=== PATIENT | male | born 1950 | race Caucasian/White ===

== ENCOUNTER 2016-12-16 11:39 | Emergency (ER) | payer MEDICARE, OTHER ==
[~2016-12-16] VITALS: Ht 167.6 cm; Wt 73.0 kg
[~2016-12-16 11:39] MED LIST: ALBU8I INH; ASPI1TAB7 PO; DUONI NEB; METF500 PO; PRED20 PO; SIMV20 PO; SYMB160A INH
[2016-12-16 11:45] VITALS: BP 159/55; PULSE 92; RESP 24; TEMP 98.3; O2SAT 95
[2016-12-16 11:55] VITALS: BP 139/78; PULSE 92; RESP 18; TEMP 98.2; O2SAT 95
[2016-12-16] MEDS ORDERED: SODIUM CHLORIDE 0.9% FLUSH 10 ML FLUSH IVF PRN (12:00)
[2016-12-16] MEDS ORDERED: RESP: ALBUTEROL 2.5 MG/IPRATROPIUM 0.5 MG NEB (SCH) NEB ONE (12:00)
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
[2016-12-16] MEDS ORDERED: VENTAER INH (12:03)
[2016-12-16] MEDS ORDERED: IPRASOL INH (12:03)
[2016-12-16] MEDS ORDERED: ASPI81CH CHEW (12:03)
[2016-12-16] MEDS ORDERED: TIOT12.9 INH (12:03)
[2016-12-16] MEDS ORDERED: METF500T PO (12:03)
[2016-12-16] MEDS ORDERED: SYMB160A INH (12:03)
[2016-12-16] MEDS ORDERED: SIMV20TA PO (12:04)
[2016-12-16 12:09] VITALS: O2SAT 95
[2016-12-16 12:21] VITALS: O2SAT 95
[2016-12-16 12:21] LABS: BLOOD GAS VENOUS BASE EXCESS 3.6 mmol/L (-2-2); BLOOD GAS VENOUS HCO3 28 mmol/L (22-26); BLOOD GAS VENOUS O2 CONTENT 15.5 Vol % (9.0-17.0); BLOOD GAS VENOUS O2 HGB SAT 80 % (70-76); BLOOD GAS VENOUS PCO2 47 mmHg (44-48); BLOOD GAS VENOUS PO2 47 mmHg (35-40); CRITICAL VALUE NO; LITER FLOW 2 L/M; OXYGEN DEVICE NASAL CANNULA; TEMP CORR TO 98.6
[2016-12-16 12:22] LABS: DRAW SITE R PERIPHERAL; STAT YES
[2016-12-16 12:31] LABS: AUTOMATED NEUTROPHIL # 6.1 TH/MM3 (1.8-7.7); BASOPHIL # 0.1 TH/MM3 (0-0.2); BASOPHIL % 0.6 % (0.0-2.0); EOSINOPHIL # 0.3 TH/MM3 (0-0.4); EOSINOPHIL % 2.8 % (0.0-4.0); HEMATOCRIT 41.6 % (39.0-51.0); HEMO FLAGS DIFF FINAL; LYMPH % 26.6 % (9.0-44.0); LYMPHOCYTE # 2.6 TH/MM3 (1.0-4.8); MEAN CELL VOLUME 91.8 FL (80.0-100.0); MEAN CORPUSCULAR HEMOGLOBIN 30.1 PG (27.0-34.0); MEAN CORPUSCULAR HGB CONC 32.8 % (32.0-36.0); MONO % 8.5 % (0.0-8.0); NEUT % 61.5 % (16.0-70.0); PLATELET COUNT 296 TH/MM3 (150-450); RED BLOOD COUNT 4.53 MIL/MM3 (4.50-5.90); RED CELL DISTRIBUTION WIDTH 14.5 % (11.6-17.2); WHITE BLOOD COUNT 9.9 TH/MM3 (4.0-11.0)
[2016-12-16 12:33] LABS: CHLORIDE 106 MEQ/L (98-107); POTASSIUM 3.9 MEQ/L (3.5-5.1); SODIUM (NA) 139 MEQ/L (136-145)
[2016-12-16 12:37] LABS: ANION GAP 7 MEQ/L (5-15); APTT (PATIENT) 25.4 SEC (24.3-30.1); BICARBONATE 26.5 MEQ/L (21.0-32.0); BLOOD UREA NITROGEN 8 MG/DL (7-18); INTERNATIONAL NORMALIZED RATIO 0.9 RATIO; MAGNESIUM 1.9 MG/DL (1.5-2.5); PROTHROMBIN TIME - PATIENT 10.1 SEC (9.8-11.6)
[2016-12-16 12:40] LABS: ALT (GPT) 15 U/L (12-78); AST (GOT) 14 U/L (15-37); GLOMERULAR FILTRATION RATE 118 ML/MIN (>89)
[2016-12-16 12:42] LABS: TOTAL BILIRUBIN ADULT 0.4 MG/DL (0.2-1.0)
[2016-12-16 12:43] LABS: ALKALINE PHOSPHATASE 64 U/L (45-117)
[2016-12-16] MEDS ORDERED: BENZONATATE 100 MG CAP PO ONE (12:45)
[2016-12-16 12:55] VITALS: BP 142/71; PULSE 79; RESP 20; O2SAT 95
--- NOTE | 2016-12-16 12:57 | RADRPT ---
EXAM DATE/TIME: 12/16/2016 12:22 [facility] COMPARISON: No previous studies available for comparison. INDICATIONS : Cough & short of breath. MEDICAL HISTORY : Chronic obstructive pulmonary disease. Hypercholesterolemia. Diabetic. SURGICAL HISTORY : Tonsillectomy. ENCOUNTER: Initial ACUITY: 2 weeks PAIN SCORE: 0/10 LOCATION: chest FINDINGS: PA and lateral views of the chest demonstrate the lungs to be symmetrically hyper aerated without kandace dence of mass, infiltrate or effusion. The cardiomediastinal contours are unremarkable. Osseous str uctures are intact. CONCLUSION: 1. COPD 2. No evidence of acute process. Anival Maurer MD on December 16, 2016 at 12:55 Board Certified Radiologist. This report was verified electronically.
[2016-12-16] MEDS ORDERED: predniSONE 20 MG TAB PO ONE (13:00)
[2016-12-16] MEDS ORDERED: AZITHROMYCIN 250 MG TAB PO ONE (13:15)
[2016-12-17] MEDS ORDERED: predniSONE 20 MG TAB PO SCH (09:00)
[2016-12-17] MEDS ORDERED: AZITHROMYCIN 250 MG TAB PO SCH (09:00)
--- NOTE | 2016-12-17 13:52 | EKG ---
Date Performed: 12/16/2016 Time Performed: 11:58:57 PTAGE: 66 years EKG: Sinus rhythm RIGHT BUNDLE BRANCH BLOCK ABNORMAL ECG Compared to prior tracing no significant change PREVIOUS TRACING : 01/12/2016 13.40 DOCTOR: Rina Burton Interpretating Date/Time 12/17/2016 13:51:06
== END 2016-12-16 13:39 | disposition home or self-care (01) ==
LOC: PHED 11:39
DX: J44.1 Chronic obstructive pulmonary disease with (acute) exacerbation (principal); R94.31 Abnormal electrocardiogram [ECG] [EKG]; E11.9 Type 2 diabetes mellitus without complications; E78.00 Pure hypercholesterolemia, unspecified; F17.200 Nicotine dependence, unspecified, uncomplicated; Z79.82 Long term (current) use of aspirin; Z79.84 Long term (current) use of oral hypoglycemic drugs; Z87.09 Personal history of other diseases of the respiratory system
CPT/HCPCS: 71020; 80053; 82805; 83735; 83880; 84484; 85025; 85610; 85730; 93005; 94664; 99285; J7512

== ENCOUNTER 2017-06-17 09:30 | Emergency (ER) | payer MEDICAID, MEDICARE, OTHER ==
[~2017-06-17] VITALS: Ht 170.2 cm; Wt 75.0 kg
[~2017-06-17 09:30] MED LIST changes: -ALBU8I INH; +ASPI-516 CHEW; -ASPI1TAB7 PO; -DUONI NEB; +IPRASOL INH; -METF500 PO; +METF500T PO; -PRED20 PO; -SIMV20 PO; +SIMV20TA PO; +TIOT12.9 INH; +VENTAER INH
[2017-06-17 09:35] VITALS: BP 171/112; PULSE 78; RESP 20; TEMP 97.9; O2SAT 93
[2017-06-17] MEDS ORDERED: ONDANSETRON HCL 4 MG/2 ML VIAL IM ONE (10:15)
[2017-06-17] MEDS ORDERED: MORPHINE SULFATE 4 MG/ML INJ IM ONE (10:15)
--- NOTE | 2017-06-17 10:16 | PD ---
HPI Chief Complaint: Respiratory Symptoms Time Seen by Provider: 09:57 Travel History International Travel<30 days: No Contact w/Intl Traveler<30days: No Traveled to known affect area: No History of Present Illness HPI This patient complains of pain in his back. He's had it for one month. Sometimes sends pain radiating down his left arm to the level of the elbow. He has chronic shortness of breath and COPD and sleep apnea and oxygen dependent and still smoking. He has nebulizers at home. There is been no fall or injury. He is right handed. He is not discuss this with his physician. Severity is moderate. It's worse with movement and activity. no pleuritic pain PFSH Past Medical History Hx Anticoagulant Therapy: Yes (81 MG ASA) High Cholesterol: Yes Congestive Heart Failure: No COPD: Yes Coronary Artery Disease: No Diabetes: Yes Patient Takes Glucophage: Yes (06/17/17 0900) Endocrine: Yes Respiratory: Yes (COPD, CPAP HS) Immunizations Current: Yes Tetanus Vaccination: Unknown Influenza Vaccination: Yes Past Surgical History Tonsillectomy: Yes Other Surgery: Yes (NODULES REMOVED FROM THROAT) Social History Alcohol Use: No Tobacco Use: Yes (04/09 PPD) Substance Use: No Allergies-Medications (Allergen,Severity, Reaction): Coded Allergies: No Known Allergies (Unverified Adverse Reaction, Unknown, 06/17/17) Reported Meds & Prescriptions Reported Meds & Active Scripts Active Tylenol-Codeine #3 (Acetaminophen-Codeine) 300-30 mg Tab 1 Tab PO Q6H PRN Reported Simvastatin 20 Mg Tab 20 Mg PO DAILY Aspirin 81 Mg Chew 81 Mg CHEW DAILY Metformin (Metformin HCl) 500 Mg Tab 500 Mg PO DAILY With a meal Spiriva Respimat Inh (Tiotropium Inh) 2.5 Mcg/Act Aero 2 Puff INH DAILY 2.5 mcg = 1 inhalation Symbicort Inh (Budesonide/Formoterol Fumarate) 160-4.5 Mcg/Act Aero 1 Puff INH Q12HR Duoneb (Ipratropium-Albuterol Neb) 0.5-2.5 Mg/3 Ml Neb 1 Nebule INH Q4HR NEB PRN Ventolin Hfa 18 GM Inh (Albuterol Sulfate) 90 Mcg/Act Aer 2 Puff INH Q4H PRN Review of Systems General / Constitutional: No: Fever Eyes: No: Visual changes HENT: No: Headaches Cardiovascular: No: Chest Pain or Discomfort Respiratory: Positive: Shortness of Breath Gastrointestinal: No: Abdominal Pain Genitourinary: No: Dysuria Musculoskeletal: Positive: Pain Skin: No Rash Neurologic: No: Weakness Psychiatric: No: Depression Endocrine: No: Polydipsia Hematologic/Lymphatic: No: Easy Bruising Physical Exam Narrative GENERAL: Well-nourished, well-developed patient in no apparent distress. SKIN: Focused skin assessment reveals no rash and nodules. Skin is Warm and dry. HEAD: Atraumatic. Normocephalic. EYES: Pupils equal and round. No scleral icterus. No injection or drainage. ENT: No nasal bleeding or discharge. Mucous membranes pink and moist. NECK: Trachea midline. No JVD. CARDIOVASCULAR: Regular rate and rhythm. No murmur appreciated. RESPIRATORY: No accessory muscle use. Clear to auscultation. Breath sounds equal bilaterally. GASTROINTESTINAL: Abdomen soft, non-tender, nondistended. Hepatic and splenic margins not palpable. MUSCULOSKELETAL: No obvious deformities. No clubbing. No cyanosis. No edema. He has readily reproducible pain with palpation of the area just medial to the left scapular border. It produces pain that radiates down his left arm with palpation. He also has a lot of tenderness around the left pectoral region. Arm has good pulse and sensation and there is no swelling or tenderness of the arm NEUROLOGICAL: Awake and alert. No obvious cranial nerve deficits. Motor grossly within normal limits. Normal speech. PSYCHIATRIC: Appropriate mood and affect; insight and judgment normal. Data Data Last Documented VS Vital Signs Date Time Temp Pulse Resp B/P (MAP) Pulse Ox O2 Delivery O2 Flow Rate FiO2 06/17/17 11:27 18 06/17/17 09:54 67 96 Nasal Cannula 2.00 06/17/17 09:35 97.9 171/112 (131) Orders Orders Chest, Single Ap (06/17/17 ) Ondansetron Inj (Zofran Inj) (06/17/17 10:15) Morphine Inj (Morphine Inj) (06/17/17 10:15) [facility] Medical Decision Making Medical Screen Exam Complete: Yes Emergency Medical Condition: Yes Medical Record Reviewed: Yes Differential Diagnosis Rotator cuff strain, radiculopathy, muscle tear, overuse injury Narrative Course I have reviewed the patient's electronic medical record. Reviewed his discharge summary from 2016 hospitalization detailing his history Is no objective findings here. He's had one month of what is clearly musculoskeletal pain by examination. Readily reproducible tenderness of the rhomboid muscle area. I reviewed his EKG which shows sinus rhythm with no ST elevation. He has a right bundle-branch block Is not having chest pain I reviewed his chest x-ray is normal I gave him morphine and Zofran injection for symptom relief and on recheck he feels better Some Tylenol 3 prescribed Recommending primary care follow-up Diagnosis Primary Impression: Musculoskeletal back pain Additional Impressions: COPD (chronic obstructive pulmonary disease) Qualified Codes: J44.9 - Chronic obstructive pulmonary disease, unspecified Sleep apnea Qualified Codes: G47.30 - Sleep apnea, unspecified Additional Instructions: The patient was advised to follow up with their physician and return if they worsen. The patient was warned about potential sedation for the medications they will receive on prescription. Med/Other Pt SpecificInfo: Prescription(s) given Scripts Acetaminophen-Codeine (Tylenol-Codeine #3) 300-30 mg Tab 1 TAB PO Q6H Y for PAIN, #20 TAB 0 Refills Prov: Estiven Gordillo MD 06/17/17 Disposition: 01 DISCHARGE HOME Condition: Stable Estiven Gordillo MD Jun 17, 2017 10:16
--- NOTE | 2017-06-17 11:03 | RADRPT ---
EXAM DATE/TIME: 06/17/2017 10:10 [facility] COMPARISON: CHEST SINGLE AP, January 12, 2016, 14:18. INDICATIONS : Chest pain. MEDICAL HISTORY : Chronic obstructive pulmonary disease. SURGICAL HISTORY : None. ENCOUNTER: Initial ACUITY: 1 day PAIN SCORE: 2/10 LOCATION: Bilateral chest FINDINGS: A single view of the chest demonstrates the lungs to be symmetrically aerated without evidence of mas s, infiltrate or effusion. The cardiomediastinal contours are unremarkable. Osseous structures are intact. CONCLUSION: No acute disease. Bernard Asher MD on June 17, 2017 at 11:01 Board Certified Radiologist. This report was verified electronically.
[2017-06-17 11:27] VITALS: RESP 18
[2017-06-17] MEDS ORDERED: TYLETAB34 PO (11:40)
[2017-06-17 12:21] VITALS: BP 121/64
--- NOTE | 2017-06-18 20:41 | EKG ---
Date Performed: 06/17/2017 Time Performed: 09:46:59 PTAGE: 66 years EKG: Sinus rhythm RIGHT BUNDLE BRANCH BLOCK ABNORMAL ECG Since the PREVIOUS TRACING , no significant change noted DOCTOR: Renea Peña Interpretating Date/Time 06/18/2017 20:39:43
== END 2017-06-17 12:30 | disposition home or self-care (01) ==
LOC: PHED 09:30
DX: M79.1 Myalgia (principal); M54.9 Dorsalgia, unspecified; J44.9 Chronic obstructive pulmonary disease, unspecified; G47.30 Sleep apnea, unspecified; I45.10 Unspecified right bundle-branch block; E78.00 Pure hypercholesterolemia, unspecified; F17.210 Nicotine dependence, cigarettes, uncomplicated; E11.9 Type 2 diabetes mellitus without complications; Z79.84 Long term (current) use of oral hypoglycemic drugs; Z79.82 Long term (current) use of aspirin; Z99.81 Dependence on supplemental oxygen
CPT/HCPCS: 71045; 93005; 96372; 99284; J2270; J2405

== ENCOUNTER 2017-10-02 11:20 | Inpatient (IN) | END 2017-10-05 10:14 | disposition home or self-care (01) | LOC: PH3 12:31 | PROVIDERS: ADMIT Hospitalist; ATTEND Hospitalist ==

== ENCOUNTER 2017-11-14 09:08 | Observation (INO) ==
[2017-11-14] MEDS ORDERED: Morphine Inj 4 MG/ML Vial IV.PUSH ONE (09:24)
[2017-11-14] MEDS ORDERED: Aspirin 325 MG Tablet PO ONE (09:24)
--- NOTE | 2017-11-14 09:28 | ED ---
HPI General Chief complaint: Chest Pain Stated complaint: Chest/back pain x 1 day Time Seen by Provider: 11/14/17 09:18 History of Present Illness HPI narrative: 67-year-old male history of COPD, diabetes here for evaluation of chest pain that started yesterday morning. Pain is located in the mid chest that radiates to the left arm associated with numbness, pain occurred at rest as the patient was sitting on the couch, rated 9 out of 10, constant since yesterday morning, sharp, radiates to the back. Patient has history of COPD was last admitted on 10/05/2017 for COPD exacerbation, on home oxygen 2 L, has been having a cough that is productive of yellow sputum but no blood. Patient sees his doctor at the [facility], compliant with his medications. No fevers chills or night sweats or weight loss. Related Data Home Medications Medication Instructions Recorded Confirmed albuterol sulfate 2.5 mg INHALATION Q6HR 11/14/17 11/14/17 albuterol sulfate [Proventil HFA] 2 puff INHALATION Q4-6H PRN 11/14/17 11/14/17 aspirin [Aspirin Low Dose] 81 mg PO DAILY 11/14/17 11/14/17 budesonide-formoterol [Symbicort] 2 puff INHALATION BID 11/14/17 11/14/17 ipratropium-albuterol [Combivent 1 puff INHALATION QID 11/14/17 11/14/17 Respimat] metformin 500 mg PO DAILY 11/14/17 11/14/17 simvastatin 20 mg PO QPM 11/14/17 11/14/17 tiotropium bromide [Spiriva 2 puff INHALATION DAILY 11/14/17 11/14/17 Respimat] Allergies Allergy/AdvReac Type Severity Reaction Status Date / Time No Known Allergies Allergy Verified 11/14/17 09:31 Review of Systems ROS: all other systems reviewed are negative PMFSH Family History Family History Other Cancer Social History Social History Substance History: No History of Abuse Second Hand Smoke Exposure: No Smoking Status: Current every day smoker Tobacco Type: Cigarettes How Often Do You Have a Drink Containing Alcohol: Never Exam Narrative Exam Narrative: GENERAL: Alert oriented 3 no acute distress able to speak in full sentences. SKIN: Focused skin assessment warm/dry. HEAD: Atraumatic. Normocephalic. EYES: Pupils equal and round. No scleral icterus. No injection or drainage. ENT: No nasal bleeding or discharge. Mucous membranes pink and moist. NECK: Trachea midline. No JVD. CARDIOVASCULAR: Regular rate and rhythm. No murmur appreciated. RESPIRATORY: Bilateral expiratory wheezing lift more than the right, no accessory muscle use. Breath sounds equal bilaterally. GASTROINTESTINAL: Abdomen soft, non-tender, nondistended. Hepatic and splenic margins not palpable. MUSCULOSKELETAL: No obvious deformities. No clubbing. No cyanosis. No edema. NEUROLOGICAL: Awake and alert. No obvious cranial nerve deficits. Motor grossly within normal limits. Normal speech. PSYCHIATRIC: Appropriate mood and affect; insight and judgment normal. Course Initial Documented Vital Signs Temperature 98.2 F 11/14/17 09:15 Pulse Rate 90 11/14/17 09:15 Respiratory Rate 20 11/14/17 09:15 Blood Pressure 162/86 H 11/14/17 09:15 Pulse Oximetry 96 11/14/17 09:15 Last Documented Vital Signs Temperature 97.8 F 11/15/17 04:00 Pulse Rate 99 H 11/15/17 04:00 Respiratory Rate 20 11/15/17 04:00 Blood Pressure 150/85 H 11/15/17 04:00 Pulse Oximetry 96 11/15/17 04:00 Medical Decision Making [facility] Narrative Medical decision making narrative: 67-year-old male here for evaluation of chest pain. Patient risk factors include hypertension diabetes COPD. Patient will be admitted for 23 hours observation for her chest pain rule out [place]. Lab Data Result diagrams: 11/15/17 06:23 11/15/17 06:23 Lab Results 11/14/17 11/14/17 11/14/17 Range/Units 09:44 09:44 09:53 CBC w Diff Slide review pending WBC 11.6 H (4.0-11.0) th/mm3 RBC 4.62 (4.50-5.90) mil/mm3 Hgb 14.6 (13.0-17.0) gm/dL Hct 43.0 (39.0-51.0) % MCV 93.1 (80.0-100.0) fL MCH 31.6 (27.0-34.0) pg MCHC 33.9 (32.0-36.0) % RDW 13.7 (11.6-17.2) % Plt Count 320 (150-450) th/mm3 MPV 8.6 (7.0-11.0) fL Neut % (Auto) 74.2 H (16.0-70.0) % Lymph % (Auto) 16.7 (9.0-44.0) % [place] % (Auto) 5.9 (0.0-8.0) % Eos % (Auto) 2.5 (0.0-4.0) % Baso % (Auto) 0.7 (0.0-2.0) % Neut # (Auto) 8.6 H (1.8-7.7) th/mm3 Lymph # (Auto) 1.9 (1.0-4.8) th/mm3 [place] # (Auto) 0.7 (0.0-0.9) th/mm3 Eos # (Auto) 0.3 (0.0-0.4) th/mm3 Baso # (Auto) 0.1 (0.0-0.2) th/mm3 WBC Differential . Differential Comment . PT (9.8-11.6) sec INR Ratio APTT (24.3-30.1) sec Sodium (136-145) meq/L Potassium (3.5-5.1) meq/L Chloride (98-107) meq/L Carbon Dioxide (21.0-32.0) meq/L Anion Gap (5-15) meq/L BUN (7-18) mg/dL Creatinine (0.60-1.30) mg/dL Estimated GFR (>89) mL/min POC Glucose (68-110) mg/dl Random Glucose (74-106) mg/dL Calcium (8.5-10.1) mg/dL Total Bilirubin (0.2-1.0) mg/dL Direct Bilirubin (0.0-0.2) mg/dL AST (15-37) U/L ALT (12-78) U/L Alkaline Phosphatase (45-117) U/L Total Creatine Kinase (39-308) U/L Troponin I (0.02-0.05) ng/mL B-Natriuretic Peptide (0-100) pg/mL Total Protein (6.4-8.2) g/dL Albumin (3.4-5.0) g/dL Lipase (73-393) U/L Ur Collection Type Clean catch Urine Color Yellow (Yellw/Straw) Urine Clarity Clear (Clear) Urine pH 5.5 (5.0-8.5) Ur Specific [place] 1.025 (1.002-1.035) Urine Protein Negative (Neg-Trace) mg/dL Urine Glucose (UA) Negative (Negative) mg/dL Urine Ketones Trace (Negative) mg/dL Urine Occult Blood Negative (Negative) Urine Nitrate Negative (Negative) Urine Bilirubin Negative (Negative) Urine Urobilinogen 0.2 (Less than 2) mg/dL Ur Leukocyte Esterase Negative (Negative) Ur Squamous Epith Cells 0-5 (0-5) /hpf Calcium Oxalate Crystal Few H (None) /hpf Micro UA Comment Culture not ind Urine Culture Comments Culture not ind Urine Collection Time 944 hours Urine Opiates Screen Pos H (Neg) Ur Barbiturates Screen Neg (Neg) Ur Amphetamines Screen Neg (Neg) U Benzodiazepines Scrn Neg (Neg) Urine Cocaine Screen Neg (Neg) U Cannabinoids Screen Neg (Neg) 11/14/17 11/14/17 11/14/17 Range/Units 09:53 09:53 10:35 CBC w Diff WBC (4.0-11.0) th/mm3 RBC (4.50-5.90) mil/mm3 Hgb (13.0-17.0) gm/dL Hct (39.0-51.0) % MCV (80.0-100.0) fL MCH (27.0-34.0) pg MCHC (32.0-36.0) % RDW (11.6-17.2) % Plt Count (150-450) th/mm3 MPV (7.0-11.0) fL Neut % (Auto) (16.0-70.0) % Lymph % (Auto) (9.0-44.0) % [place] % (Auto) (0.0-8.0) % Eos % (Auto) (0.0-4.0) % Baso % (Auto) (0.0-2.0) % Neut # (Auto) (1.8-7.7) th/mm3 Lymph # (Auto) (1.0-4.8) th/mm3 [place] # (Auto) (0.0-0.9) th/mm3 Eos # (Auto) (0.0-0.4) th/mm3 Baso # (Auto) (0.0-0.2) th/mm3 WBC Differential Differential Comment PT 9.8 (9.8-11.6) sec INR 1.0 Ratio APTT 24.7 (24.3-30.1) sec Sodium 139 (136-145) meq/L Potassium 3.8 (3.5-5.1) meq/L Chloride 104 (98-107) meq/L Carbon Dioxide 26.9 (21.0-32.0) meq/L Anion Gap 8 (5-15) meq/L BUN 11 (7-18) mg/dL Creatinine 0.63 (0.60-1.30) mg/dL Estimated GFR Greater than 89 (>89) mL/min POC Glucose (68-110) mg/dl Random Glucose 95 (74-106) mg/dL Calcium 8.5 (8.5-10.1) mg/dL Total Bilirubin 0.6 (0.2-1.0) mg/dL Direct Bilirubin 0.2 (0.0-0.2) mg/dL AST 18 (15-37) U/L ALT 16 (12-78) U/L Alkaline Phosphatase 81 (45-117) U/L Total Creatine Kinase 32 L (39-308) U/L Troponin I Less than 0.02 L (0.02-0.05) ng/mL B-Natriuretic Peptide 14 (0-100) pg/mL Total Protein 6.8 (6.4-8.2) g/dL Albumin 3.3 L (3.4-5.0) g/dL Lipase 119 (73-393) U/L Ur Collection Type Urine Color (Yellw/Straw) Urine Clarity (Clear) Urine pH (5.0-8.5) Ur Specific [place] (1.002-1.035) Urine Protein (Neg-Trace) mg/dL Urine Glucose (UA) (Negative) mg/dL Urine Ketones (Negative) mg/dL Urine Occult Blood (Negative) Urine Nitrate (Negative) Urine Bilirubin (Negative) Urine Urobilinogen (Less than 2) mg/dL Ur Leukocyte Esterase (Negative) Ur Squamous Epith Cells (0-5) /hpf Calcium Oxalate Crystal (None) /hpf Micro UA Comment Urine Culture Comments Urine Collection Time hours Urine Opiates Screen (Neg) Ur Barbiturates Screen (Neg) Ur Amphetamines Screen (Neg) U Benzodiazepines Scrn (Neg) Urine Cocaine Screen (Neg) U Cannabinoids Screen (Neg) 11/14/17 11/14/17 11/14/17 Range/Units 15:55 17:16 22:30 CBC w Diff WBC (4.0-11.0) th/mm3 RBC (4.50-5.90) mil/mm3 Hgb (13.0-17.0) gm/dL Hct (39.0-51.0) % MCV (80.0-100.0) fL MCH (27.0-34.0) pg MCHC (32.0-36.0) % RDW (11.6-17.2) % Plt Count (150-450) th/mm3 MPV (7.0-11.0) fL Neut % (Auto) (16.0-70.0) % Lymph % (Auto) (9.0-44.0) % [place] % (Auto) (0.0-8.0) % Eos % (Auto) (0.0-4.0) % Baso % (Auto) (0.0-2.0) % Neut # (Auto) (1.8-7.7) th/mm3 Lymph # (Auto) (1.0-4.8) th/mm3 [place] # (Auto) (0.0-0.9) th/mm3 Eos # (Auto) (0.0-0.4) th/mm3 Baso # (Auto) (0.0-0.2) th/mm3 WBC Differential Differential Comment PT (9.8-11.6) sec INR Ratio APTT (24.3-30.1) sec Sodium (136-145) meq/L Potassium (3.5-5.1) meq/L Chloride (98-107) meq/L Carbon Dioxide (21.0-32.0) meq/L Anion Gap (5-15) meq/L BUN (7-18) mg/dL Creatinine (0.60-1.30) mg/dL Estimated GFR (>89) mL/min POC Glucose 148 H (68-110) mg/dl Random Glucose (74-106) mg/dL Calcium (8.5-10.1) mg/dL Total Bilirubin (0.2-1.0) mg/dL Direct Bilirubin (0.0-0.2) mg/dL AST (15-37) U/L ALT (12-78) U/L Alkaline Phosphatase (45-117) U/L Total Creatine Kinase 32 L 34 L (39-308) U/L Troponin I Less than 0.02 L Less than 0.02 L (0.02-0.05) ng/mL B-Natriuretic Peptide (0-100) pg/mL Total Protein (6.4-8.2) g/dL Albumin (3.4-5.0) g/dL Lipase (73-393) U/L Ur Collection Type Urine Color (Yellw/Straw) Urine Clarity (Clear) Urine pH (5.0-8.5) Ur Specific [place] (1.002-1.035) Urine Protein (Neg-Trace) mg/dL Urine Glucose (UA) (Negative) mg/dL Urine Ketones (Negative) mg/dL Urine Occult Blood (Negative) Urine Nitrate (Negative) Urine Bilirubin (Negative) Urine Urobilinogen (Less than 2) mg/dL Ur Leukocyte Esterase (Negative) Ur Squamous Epith Cells (0-5) /hpf Calcium Oxalate Crystal (None) /hpf Micro UA Comment Urine Culture Comments Urine Collection Time hours Urine Opiates Screen (Neg) Ur Barbiturates Screen (Neg) Ur Amphetamines Screen (Neg) U Benzodiazepines Scrn (Neg) Urine Cocaine Screen (Neg) U Cannabinoids Screen (Neg) 11/14/17 11/15/17 11/15/17 Range/Units 22:56 03:08 06:23 CBC w Diff Auto diff final WBC 8.1 (4.0-11.0) th/mm3 RBC 4.26 L (4.50-5.90) mil/mm3 Hgb 13.1 (13.0-17.0) gm/dL Hct 39.6 (39.0-51.0) % MCV 93.0 (80.0-100.0) fL MCH 30.8 (27.0-34.0) pg MCHC 33.1 (32.0-36.0) % RDW 13.5 (11.6-17.2) % Plt Count 260 (150-450) th/mm3 MPV 8.4 (7.0-11.0) fL Neut % (Auto) 89.6 H (16.0-70.0) % Lymph % (Auto) 7.7 L (9.0-44.0) % [place] % (Auto) 1.8 (0.0-8.0) % Eos % (Auto) 0.1 (0.0-4.0) % Baso % (Auto) 0.8 (0.0-2.0) % Neut # (Auto) 7.3 (1.8-7.7) th/mm3 Lymph # (Auto) 0.6 L (1.0-4.8) th/mm3 [place] # (Auto) 0.1 (0.0-0.9) th/mm3 Eos # (Auto) 0.0 (0.0-0.4) th/mm3 Baso # (Auto) 0.1 (0.0-0.2) th/mm3 WBC Differential . Differential Comment . PT (9.8-11.6) sec INR Ratio APTT (24.3-30.1) sec Sodium (136-145) meq/L Potassium (3.5-5.1) meq/L Chloride (98-107) meq/L Carbon Dioxide (21.0-32.0) meq/L Anion Gap (5-15) meq/L BUN (7-18) mg/dL Creatinine (0.60-1.30) mg/dL Estimated GFR (>89) mL/min POC Glucose 201 H 237 H (68-110) mg/dl Random Glucose (74-106) mg/dL Calcium (8.5-10.1) mg/dL Total Bilirubin (0.2-1.0) mg/dL Direct Bilirubin (0.0-0.2) mg/dL AST (15-37) U/L ALT (12-78) U/L Alkaline Phosphatase (45-117) U/L Total Creatine Kinase (39-308) U/L Troponin I (0.02-0.05) ng/mL B-Natriuretic Peptide (0-100) pg/mL Total Protein (6.4-8.2) g/dL Albumin (3.4-5.0) g/dL Lipase (73-393) U/L Ur Collection Type Urine Color (Yellw/Straw) Urine Clarity (Clear) Urine pH (5.0-8.5) Ur Specific [place] (1.002-1.035) Urine Protein (Neg-Trace) mg/dL Urine Glucose (UA) (Negative) mg/dL Urine Ketones (Negative) mg/dL Urine Occult Blood (Negative) Urine Nitrate (Negative) Urine Bilirubin (Negative) Urine Urobilinogen (Less than 2) mg/dL Ur Leukocyte Esterase (Negative) Ur Squamous Epith Cells (0-5) /hpf Calcium Oxalate Crystal (None) /hpf Micro UA Comment Urine Culture Comments Urine Collection Time hours Urine Opiates Screen (Neg) Ur Barbiturates Screen (Neg) Ur Amphetamines Screen (Neg) U Benzodiazepines Scrn (Neg) Urine Cocaine Screen (Neg) U Cannabinoids Screen (Neg) 11/15/17 11/15/17 Range/Units 06:23 07:53 CBC w Diff WBC (4.0-11.0) th/mm3 RBC (4.50-5.90) mil/mm3 Hgb (13.0-17.0) gm/dL Hct (39.0-51.0) % MCV (80.0-100.0) fL MCH (27.0-34.0) pg MCHC (32.0-36.0) % RDW (11.6-17.2) % Plt Count (150-450) th/mm3 MPV (7.0-11.0) fL Neut % (Auto) (16.0-70.0) % Lymph % (Auto) (9.0-44.0) % [place] % (Auto) (0.0-8.0) % Eos % (Auto) (0.0-4.0) % Baso % (Auto) (0.0-2.0) % Neut # (Auto) (1.8-7.7) th/mm3 Lymph # (Auto) (1.0-4.8) th/mm3 [place] # (Auto) (0.0-0.9) th/mm3 Eos # (Auto) (0.0-0.4) th/mm3 Baso # (Auto) (0.0-0.2) th/mm3 WBC Differential Differential Comment PT (9.8-11.6) sec INR Ratio APTT (24.3-30.1) sec Sodium 139 (136-145) meq/L Potassium 3.8 (3.5-5.1) meq/L Chloride 105 (98-107) meq/L Carbon Dioxide 28.8 (21.0-32.0) meq/L Anion Gap 5 (5-15) meq/L BUN 14 (7-18) mg/dL Creatinine 0.84 (0.60-1.30) mg/dL Estimated GFR Greater than 89 (>89) mL/min POC Glucose 266 H (68-110) mg/dl Random Glucose 273 H D (74-106) mg/dL Calcium 8.6 (8.5-10.1) mg/dL Total Bilirubin (0.2-1.0) mg/dL Direct Bilirubin (0.0-0.2) mg/dL AST (15-37) U/L ALT (12-78) U/L Alkaline Phosphatase (45-117) U/L Total Creatine Kinase (39-308) U/L Troponin I (0.02-0.05) ng/mL B-Natriuretic Peptide (0-100) pg/mL Total Protein (6.4-8.2) g/dL Albumin (3.4-5.0) g/dL Lipase (73-393) U/L Ur Collection Type Urine Color (Yellw/Straw) Urine Clarity (Clear) Urine pH (5.0-8.5) Ur Specific [place] (1.002-1.035) Urine Protein (Neg-Trace) mg/dL Urine Glucose (UA) (Negative) mg/dL Urine Ketones (Negative) mg/dL Urine Occult Blood (Negative) Urine Nitrate (Negative) Urine Bilirubin (Negative) Urine Urobilinogen (Less than 2) mg/dL Ur Leukocyte Esterase (Negative) Ur Squamous Epith Cells (0-5) /hpf Calcium Oxalate Crystal (None) /hpf Micro UA Comment Urine Culture Comments Urine Collection Time hours Urine Opiates Screen (Neg) Ur Barbiturates Screen (Neg) Ur Amphetamines Screen (Neg) U Benzodiazepines Scrn (Neg) Urine Cocaine Screen (Neg) U Cannabinoids Screen (Neg) Imaging Data Radiologist's impression: Chest X-Ray 11/14/17 09:25 CONCLUSION: Negative examination. Discharge Plan Discharge Disposition Patient Disposition: 30 Still Patient Discharge Condition Condition: Stable Discharge Details Diagnosis: Chest pain Physicians Team ED Provider: Héctor Godoy Primary Care Provider: [facility]Physician 's Attending Provider: Rajani Vela Discharge Interventions Interventions: ED Discharge Assessment Last Done: 11/14/17 12:40 Vital Signs Last Done: 11/14/17 10:30 Status ED Status: Left Department Discharge Information Discharge Date/Time: 11/14/17 12:40
[2017-11-14 09:55] LABS: Bilirubin,Urine Negative (Negative); Clarity,Urine Clear (Clear); Color,Urine Yellow (Yellw/Straw); Glucose,Urine (UA) Negative (Negative); Leukocyte Esterase,Urine Negative (Negative); Nitrite,Urine Negative (Negative); PH,Urine 5.5 (5.0-8.5); Specific Gravity,Urine 1.025 (1.002-1.035); Urobilinogen,Urine 0.2 mg/dL (Less than 2)
[2017-11-14 10:04] LABS: Baso # (Auto) 0.1 th/mm3 (0.0-0.2); Baso % (Auto) 0.7 % (0.0-2.0); Eos # (Auto) 0.3 th/mm3 (0.0-0.4); Eos % (Auto) 2.5 % (0.0-4.0); Hemoglobin 14.6 gm/dL (13.0-17.0); Lymph # (Auto) 1.9 th/mm3 (1.0-4.8); Lymph % (Auto) 16.7 % (9.0-44.0); Mean Corpuscular HGB Conc 33.9 % (32.0-36.0); Mean Corpuscular Hemoglobin 31.6 pg (27.0-34.0); Mean Corpuscular Volume 93.1 fL (80.0-100.0); Mean Platelet Volume 8.6 fL (7.0-11.0); Mono # (Auto) 0.7 th/mm3 (0.0-0.9); Mono % (Auto) 5.9 % (0.0-8.0); Neut # (Auto) 8.6 th/mm3 (1.8-7.7); Neut % (Auto) 74.2 % (16.0-70.0); Platelet Count 320 th/mm3 (150-450); Red Blood Count 4.62 mil/mm3 (4.50-5.90); Red Cell Distribution Width 13.7 % (11.6-17.2); White Blood Count 11.6 th/mm3 (4.0-11.0)
[2017-11-14 10:07] LABS: Collection Time,Urine 944 hours
[2017-11-14 10:09] LABS: Calcium Oxalate Crystals,Urine Few /hpf; Squamous Epithelial Cell,Urine 0-5 /hpf (0-5)
[2017-11-14 10:11] LABS: Amphetamine Screen,Urine Neg (Neg); Barbiturate Screen,Urine Neg (Neg); Cannabinoid Screen,Urine Neg (Neg)
[2017-11-14 10:12] LABS: Cocaine Screen,Urine Neg (Neg)
[2017-11-14 10:13] LABS: Opiate Screen,Urine Pos (Neg)
[2017-11-14 10:18] LABS: Activated Partial Thrombo Time 24.7 sec (24.3-30.1); Prothrombin Time 9.8 sec (9.8-11.6)
--- NOTE | 2017-11-14 10:42 | XR ---
EXAM DATE: 11/14/2017 10:12 AM EDT AGE/SEX: 67 years / Male INDICATIONS: Chest and back pain for one day. CLINICAL DATA: This is the patient's initial encounter. Patient reports that signs and symptoms have been present for 1 day and indicates a pain score of 8/10. MEDICAL/SURGICAL HISTORY: . Hypercholesterolemia. Chronic obstructive pulmonary disease. Diabet es. Tonsillectomy. COMPARISON: [facility], CHEST SINGLE AP, 10/02/2017. . FINDINGS: A single AP view of the chest demonstrates the lungs to be symmetrically aerated without evidence of mass, infiltrate or effusion. The cardiomediastinal contours are unremarkable. Osseous structures a re intact. CONCLUSION: Negative examination. Electronically signed by: Fidel Chen MD 11/14/2017 10:40 AM EDT
[2017-11-14] MEDS ORDERED: MethylPREDNISolone Sod Succinate Inj 125 MG/2 ML Vial IV.PUSH STA (11:05)
[2017-11-14 11:08] LABS: Chloride 104 meq/L (98-107); Potassium 3.8 meq/L (3.5-5.1); Sodium 139 meq/L (136-145)
[2017-11-14 11:12] LABS: Albumin 3.3 g/dL (3.4-5.0); Anion Gap 8 meq/L (5-15); Blood Urea Nitrogen 11 mg/dL (7-18); Calcium 8.5 mg/dL (8.5-10.1); Carbon Dioxide 26.9 meq/L (21.0-32.0); Glucose,Random 95 mg/dL (74-106); Lipase 119 U/L (73-393)
[2017-11-14 11:15] LABS: Alanine Aminotransferase 16 U/L (12-78); Aspartate Aminotransferase 18 U/L (15-37); Glomerular Filtration Rate Greater Than 89 mL/min (>89)
[2017-11-14 11:17] LABS: Total Protein 6.8 g/dL (6.4-8.2)
[2017-11-14 11:18] LABS: Alkaline Phosphatase 81 U/L (45-117)
[2017-11-14 11:21] LABS: Creatine Kinase 32 U/L (39-308)
[2017-11-14] MEDS ORDERED: Temazepam 15 MG Capsule PO PRN (12:02)
[2017-11-14] MEDS ORDERED: Dextrose 50% in Water 50 ML Vial IV.PUSH PRN (12:06)
--- NOTE | 2017-11-14 12:11 | P.HPIM ---
History of Present Illness Primary Care Physician: [facility] Chief Complaint: Chest pain History of Present Illness: This patient is a 67-year-old gentleman with a history of COPD and diabetes. He comes to the hospital complaining of 10 out of 10 back pain radiating to the chest into the arm and hands. Occurred at rest. Is relieved with IV morphine here in the hospital. He tried Aleve at home without any improvement. He notes that it is worse with movement and worse with palpation of the chest. Patient notes no fevers or chills but had had an increased cough over the last several days. He has had a stress test in the past 5 years at the [facility] without any findings for him. Patient is home O2 dependent and follows up with Dr. Lipscomb. He has been recommended for observation in the hospital due to atypical chest pain with risk factors for coronary syndromes. Patient also required treatment for COPD exacerbation. - Diagnosis (1) Chest pain (2) COPD exacerbation (3) Diabetes mellitus [facility] - History History Provided By: Patient - Medical History Medical History: Medical History (Last Reviewed 11/14/17 @ 12:10 by Rajani Vela MD) COPD (chronic obstructive pulmonary disease) Diabetes Elevated cholesterol - Surgical History Surgical History: Surgical History (Last Reviewed 11/14/17 @ 12:10 by Rajani Vela MD) History of throat surgery History of tonsillectomy - Family History Family History: Family History (Last Updated 11/14/17 @ 12:11 by Rajani Vela MD) Other Cancer - Tobacco History Tobacco Use In Past 30 Days: Yes Smoking Status: Current every day smoker Tobacco Type: Cigarettes - Alcohol History How Often Do You Have a Drink Containing Alcohol: Monthly or less - Substance Use History Substance History: No History of Abuse - Immunization History Tetanus Immunization: Unsure Medications and Allergies Active Medications: Active Medications Albuterol (Duoneb Neb (Prn)) 1 ampul NEB Q15M PRN PRN Reason: WHEEZING Albuterol (Ventolin Hfa Inh) 2 puff INH Q6H PRN PRN Reason: SHORTNESS OF BREATH Aspirin (Ecotrin) 81 mg PO DAILY CECILIA Budesonide/Formoterol Fumarate (Symbicort 160/4.5 Mcg Inh) 2 puff INH BID CECILIA Dextrose (D50w Vial) 50 ml IV.PUSH UNSCH PRN PRN Reason: PER HYPOGLYCEMIA PROTOCOL Enoxaparin Sodium (Lovenox Inj) 40 mg SQ Q24H CECILIA Glucagon (Glucagon Inj) 1 mg OTHER PRN PRN PRN Reason: for Hypoglycemia Protocol Levofloxacin/Dextrose (Levaquin 500 Mg Premix Inj) 500 mg in 100 mls @ 100 mls/ hr IV.SIG Q24H CECILIA Lactated Ringer's (Lr 1000 Ml Inj) 1,000 mls @ 100 mls/hr IV.CONT .Q10H CECILIA Insulin Aspart (Novolog Insulin Correctional Sugar Inj) 0 unit SQ ACHS AND 3AM CECILIA; Protocol Methylprednisolone Sodium Succinate (Solumedrol Inj) 40 mg IV.PUSH Q8HR CECILIA Morphine Sulfate (Morphine Inj) 2 mg IV.PUSH Q4H PRN PRN Reason: CHEST PAIN Non-Formulary Medication (Simvastatin [Simvastatin]) 20 mg PO QPM CECILIA Ondansetron HCl (Zofran Inj) 4 mg IV.PUSH Q6H PRN PRN Reason: NAUSEA OR VOMITING Senna/Docusate Sodium (Lani-Colace) 1 tab PO BID CECILIA Temazepam (Restoril) 15 mg PO HS PRN PRN Reason: INSOMNIA Allergies Allergy/AdvReac Type Severity Reaction Status Date / Time No Known Allergies Allergy Verified 11/14/17 09:31 Home Medications Medication Instructions Recorded Confirmed Type albuterol sulfate 2.5 mg INHALATION Q6HR 11/14/17 11/14/17 History albuterol sulfate [Proventil HFA] 2 puff INHALATION Q4-6H PRN 11/14/17 11/14/17 History aspirin [Aspirin Low Dose] 81 mg PO DAILY 11/14/17 11/14/17 History budesonide-formoterol [Symbicort] 2 puff INHALATION BID 11/14/17 11/14/17 History ipratropium-albuterol [Combivent 1 puff INHALATION QID 11/14/17 11/14/17 History Respimat] metformin 500 mg PO DAILY 11/14/17 11/14/17 History simvastatin 20 mg PO QPM 11/14/17 11/14/17 History tiotropium bromide [Spiriva 2 puff INHALATION DAILY 11/14/17 11/14/17 History Respimat] Exam Vital signs: Vital Signs 11/14/17 09:15 11/14/17 10:30 Temperature 98.2 F Pulse Rate 90 70 Respiratory Rate 20 20 Blood Pressure 162/86 H 134/65 Pulse Oximetry 96 95 Intake & Output 11/13/17 11/14/17 11/14/17 18:59 06:59 18:59 Weight 75 kg Narrative: GENERAL: Well-nourished, well-developed patient. SKIN: Warm and dry. HEAD: Normocephalic. EYES: No scleral icterus. No injection or drainage. NECK: Supple, trachea midline. No JVD or lymphadenopathy. CARDIOVASCULAR: Regular rate and rhythm without murmurs, gallops, or rubs. RESPIRATORY: Bilateral wheezes worse on the left, no accessory muscle use GASTROINTESTINAL: Abdomen soft, non-tender, nondistended. MUSCULOSKELETAL: No cyanosis, or edema. BACK: Nontender without obvious deformity. No CVA tenderness. NEUROLOGICAL: Awake and alert. Cranial nerves II through XII intact. Motor and sensory grossly within normal limits. Five out of 5 muscle strength in all muscle groups. Normal speech. Results - Labs CBC & Chem 7: 11/14/17 09:53 11/14/17 10:35 Labs: Short CBC 11/14/17 Range/Units 09:53 WBC 11.6 H (4.0-11.0) th/mm3 Hgb 14.6 (13.0-17.0) gm/dL Hct 43.0 (39.0-51.0) % Plt Count 320 (150-450) th/mm3 BMP 11/14/17 10:35 Sodium 139 Potassium 3.8 Chloride 104 Carbon Dioxide 26.9 BUN 11 Creatinine 0.63 Calcium 8.5 Cardiac Enzymes 11/14/17 Range/Units 10:35 Total Creatine Kinase 32 L (39-308) U/L Troponin I Less than 0.02 L (0.02-0.05) ng/mL Liver Function 11/14/17 Range/Units 10:35 Total Bilirubin 0.6 (0.2-1.0) mg/dL Direct Bilirubin 0.2 (0.0-0.2) mg/dL AST 18 (15-37) U/L ALT 16 (12-78) U/L Alkaline Phosphatase 81 (45-117) U/L Albumin 3.3 L (3.4-5.0) g/dL Urine 11/14/17 Range/Units 09:44 Urine Color Yellow (Yellw/Straw) Urine Clarity Clear (Clear) Urine pH 5.5 (5.0-8.5) Ur Specific Stanton 1.025 (1.002-1.035) Urine Protein Negative (Neg-Trace) mg/dL Urine Glucose (UA) Negative (Negative) mg/dL - Imaging Impressions Chest X-Ray 11/14/17 09:25 CONCLUSION: Negative examination. Caprini VTE Risk Assessment Caprini VTE Risk Assessment: Moderate/High Risk (score >= 2) Caprini Risk Assessment Model: Point Value = 1 Point Value = 2 Point Value = 3 Point Value = 5 Age 41-60 Minor surgery BMI > 25 kg/m2 Swollen legs Varicose veins or History of unexplained or recurrent spontaneous Oral contraceptives or hormone replacement Sepsis (< 1 month) Serious lung disease, including pneumonia (< 1 month) Abnormal pulmonary function Acute myocardial infarction Congestive heart failure (< 1 month) History of inflammatory bowel disease Medical patient at bed rest Age 61-74 Arthroscopic surgery Major open surgery (> 45 min) Laparoscopic surgery (> 45 min) Malignancy Confined to bed (> 72 hours) Immobilizing plaster cast Central venous access Age >= 75 History of VTE Family history of VTE Factor V Leiden Prothrombin [id number] Lupus anticoagulant Anticardiolipin antibodies Elevated serum homocysteine Heparin-induced thrombocytopenia Other congenital or acquired thrombophilia Stroke (< 1 month) Elective arthroplasty Hip, pelvis, or leg fracture Acute spinal cord injury (< 1 month) Prophylaxis Regimen: Total Risk Factor Score Risk Level Prophylaxis Regimen 0-1 Low Early ambulation 2 Moderate Order ONE of the following: *Sequential Compression Device (SCD) *Heparin 5000 units SQ BID 3-4 Higher Order ONE of the following medications: *Heparin 5000 units SQ TID *Enoxaparin/Lovenox 40 mg SQ daily (WT < 150 kg, CrCl > 30 mL/min) *Enoxaparin/Lovenox 30 mg SQ daily (WT < 150 kg, CrCl > 10-29 mL/min) *Enoxaparin/Lovenox 30 mg SQ BID (WT < 150 kg, CrCl > 30 mL/min) AND/OR *Sequential Compression Device (SCD) 5 or more Highest Order ONE of the following medications: *Heparin 5000 units SQ TID (Preferred with Epidurals) *Enoxaparin/Lovenox 40 mg SQ daily (WT < 150 kg, CrCl > 30 mL/min) *Enoxaparin/Lovenox 30 mg SQ daily (WT < 150 kg, CrCl > 10-29 mL/min) *Enoxaparin/Lovenox 30 mg SQ BID (WT < 150 kg, CrCl > 30 mL/min) AND *Sequential Compression Device (SCD) Assessment and Plan - Assessment (1) Chest pain Code(s): R07.9 - Chest pain, unspecified Status: Acute Plan: Atypical and may be musculoskeletal Patient is high risk with diabetes and age with family history Follow-up with [facility] in a.m. Continue with cardiac enzymes, EKG Nitro morphine as needed Daily aspirin 02 (home O2) (2) COPD exacerbation Code(s): J44.1 - Chronic obstructive pulmonary disease with (acute) exacerbation Status: Acute Plan: Continue Levaquin Solu-Medrol Bronchodilators Dependent on home O2 continue titrating his oxygen as needed Continue with nebulized bronchodilators Patient continues to smoke (3) Diabetes mellitus Code(s): E11.9 - Type 2 diabetes mellitus without complications Status: Acute Plan: Continue with sliding scale insulin and diabetic diet We will hold home metformin for now and follow clinically - Plan Code Status: Full code Discussed Condition With: STUART CHOUDHARY, patient (3) Diabetes mellitus Qualifiers: Diabetes mellitus type: type 2
[2017-11-14] MEDS: Enoxaparin Inj 40 MG/0.4 ML Syringe SQ SCH (13:45)
[2017-11-14] MEDS ORDERED: Levofloxacin 500 mg Premix Inj 500 MG/100 ML PIGGYBACK IV.SIG SCH (14:00)
[2017-11-14] MEDS: Morphine Inj 4 MG/ML Vial IV.PUSH PRN ×3 (14:04→23:06)
[2017-11-14 16:25] LABS: Creatine Kinase 32 U/L (39-308)
[2017-11-14] MEDS: Insulin NovoLOG Aspart Correctional Sugar Inj SQ SCH ×2 (18:02→22:58)
[2017-11-14] MEDS: MethylPREDNISolone Sod Succinate Inj 40 MG/ML Vial IV.PUSH SCH (20:58)
[2017-11-14] MEDS: Budesonide-Formoterol 160/4.5 MCG 6 GM Inhaler INH SCH (20:58)
[2017-11-14] MEDS: Senna/Docusate Sodium 8.6/50 MG Tablet PO SCH (20:59)
--- NOTE | 2017-11-14 21:47 | ECG ---
Date Performed: 11/14/2017 Time Performed: 09:14:25 PTAGE: 67 years EKG: Sinus rhythm INDETERMINATE AXIS RIGHT BUNDLE BRANCH BLOCK ABNORMAL ECG PREVIOUS TRACING : 10/02/2017 10.33 Since the previous tracing, no significant change noted DOCTOR: Renea Peña Interpretating Date/Time 11/14/2017 21:47:15
[2017-11-14 23:47] LABS: Creatine Kinase 34 U/L (39-308)
[2017-11-15] MEDS: Insulin NovoLOG Aspart Correctional Sugar Inj SQ SCH ×5 (03:09→20:54)
[2017-11-15] MEDS: MethylPREDNISolone Sod Succinate Inj 40 MG/ML Vial IV.PUSH SCH ×3 (03:11→20:29)
[2017-11-15 06:43] LABS: Baso # (Auto) 0.1 th/mm3 (0.0-0.2); Baso % (Auto) 0.8 % (0.0-2.0); Eos % (Auto) 0.1 % (0.0-4.0); Hematocrit 39.6 % (39.0-51.0); Hemoglobin 13.1 gm/dL (13.0-17.0); Lymph # (Auto) 0.6 th/mm3 (1.0-4.8); Lymph % (Auto) 7.7 % (9.0-44.0); Mean Corpuscular HGB Conc 33.1 % (32.0-36.0); Mean Corpuscular Hemoglobin 30.8 pg (27.0-34.0); Mean Platelet Volume 8.4 fL (7.0-11.0); Mono # (Auto) 0.1 th/mm3 (0.0-0.9); Mono % (Auto) 1.8 % (0.0-8.0); Neut # (Auto) 7.3 th/mm3 (1.8-7.7); Neut % (Auto) 89.6 % (16.0-70.0); Platelet Count 260 th/mm3 (150-450); Red Blood Count 4.26 mil/mm3 (4.50-5.90); Red Cell Distribution Width 13.5 % (11.6-17.2); White Blood Count 8.1 th/mm3 (4.0-11.0)
[2017-11-15 06:52] LABS: Chloride 105 meq/L (98-107); Potassium 3.8 meq/L (3.5-5.1); Sodium 139 meq/L (136-145)
[2017-11-15 06:54] LABS: Anion Gap 5 meq/L (5-15); Calcium 8.6 mg/dL (8.5-10.1); Carbon Dioxide 28.8 meq/L (21.0-32.0)
[2017-11-15 07:04] LABS: Blood Urea Nitrogen 14 mg/dL (7-18); Glomerular Filtration Rate Greater Than 89 mL/min (>89); Glucose,Random 273 mg/dL (74-106)
[2017-11-15] MEDS: Morphine Inj 4 MG/ML Vial IV.PUSH PRN ×3 (07:43→16:39)
[2017-11-15] MEDS: Senna/Docusate Sodium 8.6/50 MG Tablet PO SCH ×2 (08:07→20:29)
[2017-11-15] MEDS: Budesonide-Formoterol 160/4.5 MCG 6 GM Inhaler INH SCH ×2 (08:08→20:29)
[2017-11-15] MEDS ORDERED: Regadenoson Inj 0.4 MG/5 ML Syringe IV.PUSH ONE (09:51)
--- NOTE | 2017-11-15 11:02 | NM ---
EXAM DATE: 11/15/2017 10:52 AM EDT AGE/SEX: 67 years / Male INDICATIONS:Angina. Abnormal EKG Substernal chest pain. CLINICAL DATA: This is the patient's initial encounter. Patient reports that signs and symptoms have been present for 1 day and indicates a pain score of 4/10. MEDICAL/SURGICAL HISTORY: Chronic obstructive pulmonary disease. Diabetes mellitus type II. To nsillectomy. Throat surgery. COMPARISON: No prior exams available for comparison. DOSE: 8.5 mCi Tc 99m Myoview at rest 25.4 mCi [id number] at stress 0.4 mg Lexiscan STRESS SYMPTOMS: Dyspnea. EJECTION FRACTION: 69 % TECHNIQUE: The patient underwent pharmacologic stress with infusion of prescribed dose. Continuous ECG tracing was monitored during stress. Gated SPECT imaging was performed after stress and conventi onal SPECT imaging was performed at rest. The examination was performed on a SPECT/CT scanner, both attenuation and non-corrected datasets were reviewed. FINDINGS: Distribution: The maximum perfused segment at stress is in the lateral wall. Perfusion Study: The pattern of perfusion at stress is within normal limits. Gated Study: There are intact wall motion and wall thickening without hypokinetic or dyskinetic segm ents. The ejection fraction is calculated at 69%. RISK CATEGORY: Low (<1% Annual Mortality Rate) CONCLUSION: 1. No significant reversibility to suggest ischemia. 2. Normal wall motion with ejection fraction of 69%. Electronically signed by: Mahad Chavez MD 11/15/2017 11:01 AM EDT
--- NOTE | 2017-11-15 12:58 | P.PNIM ---
Subjective Interval history: Patient seen and via today in follow-up for COPD exacerbation with atypical chest pain Stress tests normal and without any reversible ischemia. Discussed with patient. Respiratory status is somewhat improved Physical Exam Vital signs: Vital Signs 11/14/17 13:48 11/14/17 14:06 11/14/17 14:16 Temperature Pulse Rate 68 Respiratory Rate 18 18 Blood Pressure Pulse Oximetry 11/14/17 15:55 11/14/17 18:03 11/14/17 20:00 Temperature 97.9 F 97.2 F L Pulse Rate 70 91 H Respiratory Rate 19 18 20 Blood Pressure 153/77 H 161/89 H Pulse Oximetry 97 96 11/14/17 20:12 11/15/17 00:00 11/15/17 04:00 Temperature 98.2 F 97.8 F Pulse Rate 105 H 99 H Respiratory Rate 20 20 Blood Pressure 138/85 150/85 H Pulse Oximetry 95 95 96 11/15/17 08:00 11/15/17 10:56 Temperature 98.4 F Pulse Rate 82 93 H Respiratory Rate 18 18 Blood Pressure 140/79 Pulse Oximetry 96 Intake & Output 11/14/17 11/15/17 11/15/17 18:59 06:59 18:59 Intake Total 400 / 400 1000 / 1000 1000 / 1000 Output Total 1000 / 1000 1000 / 1000 Balance -600 / -600 0 / 0 1000 / 1000 Weight 75 kg Intake: IV 100 / 100 1000 / 1000 1000 / 1000 LR 1000 mL Inj 1,000 ML @ 100 1000 / 1000 1000 / 1000 mls/hr IV.CONT .Q10H CECILIA Rx#: [id number] Levaquin 500 mg Premix Inj 500 100 / 100 mg In 100 ml @ 100 mls/hr IV. SIG Q24H CECILIA Rx#:[id number] Oral 300 / 300 0 / 0 Output: Urine 1000 / 1000 1000 / 1000 Other: # Voids 3 2 Date of Last Bowel Movement 11/14/17 11/14/17 Narrative: GENERAL: Well-nourished, well-developed patient. Planing of shortness of breath SKIN: Warm and dry. HEAD: Normocephalic. EYES: No scleral icterus. No injection or drainage. NECK: Supple, trachea midline. No JVD or lymphadenopathy. CARDIOVASCULAR: Regular rate and rhythm without murmurs, gallops, or rubs. RESPIRATORY: Decreased breath sounds bilaterally without accessory muscle GASTROINTESTINAL: Abdomen soft, non-tender, nondistended. MUSCULOSKELETAL: No cyanosis, or edema. BACK: Nontender without obvious deformity. No CVA tenderness. NEUROLOGICAL: Awake and alert. Cranial nerves II through XII intact. Motor and sensory grossly within normal limits. Five out of 5 muscle strength in all muscle groups. Normal speech. Results - Labs CBC & Chem 7: 11/15/17 06:23 11/15/17 06:23 Laboratory Results - last 24 hr 11/14/17 11/14/17 11/14/17 15:55 17:16 22:30 CBC w Diff WBC RBC Hgb Hct MCV MCH MCHC RDW Plt Count MPV Neut % (Auto) Lymph % (Auto) Donley % (Auto) Eos % (Auto) Baso % (Auto) Neut # (Auto) Lymph # (Auto) Donley # (Auto) Eos # (Auto) Baso # (Auto) WBC Differential Differential Comment Sodium Potassium Chloride Carbon Dioxide Anion Gap BUN Creatinine Estimated GFR POC Glucose 148 H Random Glucose Calcium Total Creatine Kinase 32 L 34 L Troponin I Less than 0.02 L Less than 0.02 L 11/14/17 11/15/17 11/15/17 22:56 03:08 06:23 CBC w Diff Auto diff final WBC 8.1 RBC 4.26 L Hgb 13.1 Hct 39.6 MCV 93.0 MCH 30.8 MCHC 33.1 RDW 13.5 Plt Count 260 MPV 8.4 Neut % (Auto) 89.6 H Lymph % (Auto) 7.7 L Donley % (Auto) 1.8 Eos % (Auto) 0.1 Baso % (Auto) 0.8 Neut # (Auto) 7.3 Lymph # (Auto) 0.6 L Donley # (Auto) 0.1 Eos # (Auto) 0.0 Baso # (Auto) 0.1 WBC Differential . Differential Comment . Sodium Potassium Chloride Carbon Dioxide Anion Gap BUN Creatinine Estimated GFR POC Glucose 201 H 237 H Random Glucose Calcium Total Creatine Kinase Troponin I 11/15/17 11/15/17 11/15/17 06:23 07:53 11:23 CBC w Diff WBC RBC Hgb Hct MCV MCH MCHC RDW Plt Count MPV Neut % (Auto) Lymph % (Auto) Donley % (Auto) Eos % (Auto) Baso % (Auto) Neut # (Auto) Lymph # (Auto) Donley # (Auto) Eos # (Auto) Baso # (Auto) WBC Differential Differential Comment Sodium 139 Potassium 3.8 Chloride 105 Carbon Dioxide 28.8 Anion Gap 5 BUN 14 Creatinine 0.84 Estimated GFR Greater than 89 POC Glucose 266 H 195 H Random Glucose 273 H D Calcium 8.6 Total Creatine Kinase Troponin I - Imaging Impressions Myocardial Perfusion Scan Nuc Med 11/15/17 00:01 CONCLUSION: 1. No significant reversibility to suggest ischemia. 2. Normal wall motion with ejection fraction of 69%. Assessment and Plan - Assessment (1) Chest pain Code(s): R07.9 - Chest pain, unspecified Status: Acute Plan: Atypical and likely related to COPD exacerbation No evidence of cardiac ischemic changes (2) COPD exacerbation Code(s): J44.1 - Chronic obstructive pulmonary disease with (acute) exacerbation Status: Acute Plan: Continue Levaquin Solu-Medrol Bronchodilators by nebulizers Dependent on home O2 continue titrating his oxygen as needed Continue with nebulized bronchodilators Patient continues to smoke (3) Diabetes mellitus Code(s): E11.9 - Type 2 diabetes mellitus without complications Status: Acute Plan: Continue with sliding scale insulin and diabetic diet We will hold home metformin for now and follow clinically - Plan Discharge Planning: Discharge in a.m. (1) Chest pain Qualifiers: Chest pain type: unspecified Qualified Code(s): R07.9 - Chest pain, unspecified (3) Diabetes mellitus Qualifiers: Diabetes mellitus type: type 2
--- NOTE | 2017-11-15 14:29 | ECG ---
Date Performed: 11/14/2017 Time Performed: 18:19:50 PTAGE: 67 years EKG: Sinus rhythm INDETERMINATE AXIS RIGHT BUNDLE BRANCH BLOCK ABNORMAL ECG Since the PREVIOUS TRACING , no significant change noted PREVIOUS TRACIN11/14/2017 09.14 DOCTOR: Darryn Villafana Interpretating Date/Time 11/15/2017 14:27:55
[2017-11-15] MEDS ORDERED: guaiFENesin/Codeine Syrup 200 MG/20 MG 10 ML UDC PO PRN (14:32)
[2017-11-15] MEDS: Enoxaparin Inj 40 MG/0.4 ML Syringe SQ SCH (14:55)
[2017-11-15] MEDS: levoFLOXacin 500 MG Tablet PO SCH (14:55)
[2017-11-16] MEDS: MethylPREDNISolone Sod Succinate Inj 40 MG/ML Vial IV.PUSH SCH (03:45)
[2017-11-16] MEDS: Insulin NovoLOG Aspart Correctional Sugar Inj SQ SCH ×5 (03:45→21:00)
[2017-11-16] MEDS: Morphine Inj 4 MG/ML Vial IV.PUSH PRN ×4 (03:46→21:01)
[2017-11-16] MEDS: Budesonide-Formoterol 160/4.5 MCG 6 GM Inhaler INH SCH ×2 (08:07→21:04)
[2017-11-16] MEDS: Senna/Docusate Sodium 8.6/50 MG Tablet PO SCH ×3 (08:10→20:59)
--- NOTE | 2017-11-16 11:47 | P.PNIM ---
Subjective Interval history: Patient seen and evaluated today in follow-up for atypical chest pain secondary to COPD and for left shoulder pain. Patient overall finding of severe pain unable to tolerate movements. COPD appears to improve slowly. Patient reports minimal improvement in his cough and dyspnea Physical Exam Vital signs: Vital Signs 11/15/17 12:00 11/15/17 16:00 11/15/17 19:35 Temperature 97.6 F 96.0 F L Pulse Rate 77 87 87 Respiratory Rate 18 18 18 Blood Pressure 163/70 H 157/90 H Pulse Oximetry 95 95 94 L 11/15/17 20:00 11/16/17 00:00 11/16/17 03:48 Temperature 98.3 F 97.8 F Pulse Rate 92 H 73 Respiratory Rate 20 20 18 Blood Pressure 145/73 H 139/69 Pulse Oximetry 95 96 11/16/17 07:54 11/16/17 09:07 11/16/17 11:33 Temperature 96.7 F L 97.2 F L Pulse Rate 66 64 81 Respiratory Rate 20 20 20 Blood Pressure 146/77 H 165/76 H Pulse Oximetry 96 96 Intake & Output 11/15/17 11/16/17 11/16/17 18:59 06:59 18:59 Intake Total 1920 / 1920 120 / 120 Balance 1920 / 1920 120 / 120 Weight 75.4 kg Intake: IV 1000 / 1000 LR 1000 mL Inj 1,000 ML @ 100 1000 / 1000 mls/hr IV.CONT .Q10H CECILIA Rx#: [id number] Oral 920 / 920 120 / 120 Other: # Voids 3 2 Date of Last Bowel Movement 11/14/17 11/14/17 Narrative: GENERAL: Well-nourished, well-developed patient. SKIN: Warm and dry. HEAD: Normocephalic. EYES: No scleral icterus. No injection or drainage. NECK: Supple, trachea midline. No JVD or lymphadenopathy. CARDIOVASCULAR: Regular rate and rhythm without murmurs, gallops, or rubs. RESPIRATORY: Decreased breath sounds bilaterally with scattered wheezes GASTROINTESTINAL: Abdomen soft, non-tender, nondistended. MUSCULOSKELETAL: No cyanosis, or edema. BACK: Nontender without obvious deformity. No CVA tenderness. NEUROLOGICAL: Awake and alert. Cranial nerves II through XII intact. Motor and sensory grossly within normal limits. Five out of 5 muscle strength in all muscle groups. Normal speech. Results - Labs CBC & Chem 7: 11/15/17 06:23 11/15/17 06:23 Laboratory Results - last 24 hr 11/15/17 11/15/17 11/16/17 16:43 20:28 03:38 POC Glucose 211 H 220 H 227 H 11/16/17 08:00 POC Glucose 123 H Assessment and Plan - Assessment (1) Chest pain Code(s): R07.9 - Chest pain, unspecified Status: Acute Plan: Atypical and likely related to COPD exacerbation No evidence of cardiac ischemic changes (2) COPD exacerbation Code(s): J44.1 - Chronic obstructive pulmonary disease with (acute) exacerbation Status: Acute Plan: Continue Levaquin P.o. prednisone Bronchodilators by nebulizers Dependent on home O2 continue titrating his baseline oxygen as needed Continue with nebulized bronchodilators Patient continues to smoke (3) Diabetes mellitus Code(s): E11.9 - Type 2 diabetes mellitus without complications Status: Acute Plan: Continue with sliding scale insulin and diabetic diet We will hold home metformin for now and follow clinically (4) Acute pain of left shoulder Code(s): M25.512 - Pain in left shoulder Status: Acute Plan: Patient reports excessive strain left shoulder traumatically in the last several weeks and feels as if this is causing his significant pain Follow-up MRI of shoulder and add Celebrex - Plan Discharge Planning: Discharge in a.m. (1) Chest pain Qualifiers: Chest pain type: unspecified Qualified Code(s): R07.9 - Chest pain, unspecified (3) Diabetes mellitus Qualifiers: Diabetes mellitus type: type 2
[2017-11-16] MEDS ORDERED: Celecoxib 200 MG Capsule PO ONE (12:00)
[2017-11-16] MEDS: Enoxaparin Inj 40 MG/0.4 ML Syringe SQ SCH (13:37)
[2017-11-16] MEDS: levoFLOXacin 500 MG Tablet PO SCH (13:37)
--- NOTE | 2017-11-16 17:04 | MR ---
EXAM DATE: 11/16/2017 3:28 PM EDT AGE/SEX: 67 years / Male INDICATIONS: . Shoulder pain and numbness. CLINICAL DATA: This is the patient's initial encounter. Patient reports that signs and symptoms have been present for 2 days and indicates a pain score of 3/10. MEDICAL/SURGICAL HISTORY: Diabetes mellitus type II. Hypercholesterolemia. Chronic obstructiv e pulmonary disease. Tonsillectomy. COMPARISON: . TECHNIQUE: Multiplanar, multisequence MRI examination was performed without contrast. FINDINGS: Distal rotator cuff mildly thickened. The rotator cuff is intact. Muscles of the rotator cuff are wit hin normal limits. No atrophy. Trace fluid in the subacromial/subdeltoid bursa. Normally aligned glenohumeral joint. Labrum and long head biceps tendon intact. No capsular thickenin g. Type II acromion. No significant subacromial spurring. Very mild degenerative changes of the acromioc lavicular joint. CONCLUSION: Minimal cuff tendinosis and subacromial/subdeltoid bursitis. Otherwise negative. Electronically signed by: Benito Frankel MD 11/16/2017 5:03 PM EDT
[2017-11-16] MEDS: predniSONE 20 MG Tablet PO SCH (20:59)
[2017-11-17] MEDS: Insulin NovoLOG Aspart Correctional Sugar Inj SQ SCH ×3 (02:37→12:32)
[2017-11-17 07:21] VITALS: O2SAT 97
[2017-11-17] MEDS: Morphine Inj 4 MG/ML Vial IV.PUSH PRN (08:00)
[2017-11-17] MEDS: predniSONE 20 MG Tablet PO SCH (08:01)
[2017-11-17] MEDS: Senna/Docusate Sodium 8.6/50 MG Tablet PO SCH (08:02)
[2017-11-17] MEDS: Budesonide-Formoterol 160/4.5 MCG 6 GM Inhaler INH SCH (08:02)
--- NOTE | 2017-11-17 09:16 | P.DS ---
Date of admission: 11/14/17 11:25 Primary care physician: [facility] Brief History from admission: This patient is a 67-year-old gentleman with a history of COPD and diabetes. He comes to the hospital complaining of 10 out of 10 back pain radiating to the chest into the arm and hands. Occurred at rest. Is relieved with IV morphine here in the hospital. He tried Aleve at home without any improvement. He notes that it is worse with movement and worse with palpation of the chest. Patient notes no fevers or chills but had had an increased cough over the last several days. He has had a stress test in the past 5 years at the [facility] without any findings for him. Patient is home O2 dependent and follows up with Dr. Tabares he has been recommended for observation in the hospital due to atypical chest pain with risk factors for coronary syndromes. Patient also required treatment for COPD exacerbation. DS: Diagnosis - Discharge Diagnosis (1) Chest pain Status: Acute (2) COPD exacerbation Status: Acute (3) Diabetes mellitus Status: Acute (4) Acute pain of left shoulder Status: Acute DS: Medications - Discharge Medications Prescriptions: codeine-guaifenesin 10 ml PO Q6H PRN #14 ml PRN Reason: Cough levofloxacin 500 mg PO Q24H #3 tab pantoprazole [Protonix] 40 mg PO DAILY #14 tab prednisone 20 mg PO BID #6 tab DS: Summary Hospital Course: Patient seen and treated for COPD exacerbation. He requires steroids and nebulizers improved. Patient also was evaluated for left shoulder pain which improved with anti-inflammatories. Imaging did show joint inflammation and bursitis likely correlating to a traumatic event that the patient recalls. - Time Spent with Patient Total time spent providing and/or coordinating discharge services: Greater than 30 minutes - Quality: VTE Deep Vein Thrombosis/Pulmonary Embolism Present on Admission: No Exam Vital signs: Vital Signs 11/16/17 11:33 11/16/17 15:05 11/16/17 19:27 Temperature 97.2 F L 96.9 F L Pulse Rate 81 78 77 Respiratory Rate 20 20 16 Blood Pressure 165/76 H 156/74 H Pulse Oximetry 96 96 97 11/16/17 20:00 11/16/17 22:01 11/17/17 00:00 Temperature 97.8 F 97 F L Pulse Rate 83 67 Respiratory Rate 20 20 20 Blood Pressure 141/65 H 130/63 Pulse Oximetry 93 L 97 11/17/17 07:18 11/17/17 07:20 Temperature 96.7 F L Pulse Rate 84 61 Respiratory Rate 16 20 Blood Pressure 124/63 Pulse Oximetry 96 97 Intake & Output 11/16/17 11/17/17 11/17/17 18:59 06:59 18:59 Intake Total 1080 / 1080 240 / 240 Balance 1080 / 1080 240 / 240 Weight 75.2 kg Intake: Oral 1080 / 1080 240 / 240 Other: # Voids 5 2 Date of Last Bowel Movement 11/14/17 # Bowel Movements 1 Narrative: GENERAL: Well-nourished, well-developed patient. SKIN: Warm and dry. HEAD: Normocephalic. EYES: No scleral icterus. No injection or drainage. NECK: Supple, trachea midline. No JVD or lymphadenopathy. CARDIOVASCULAR: Regular rate and rhythm without murmurs, gallops, or rubs. RESPIRATORY: Breath sounds equal bilaterally. No accessory muscle use. GASTROINTESTINAL: Abdomen soft, non-tender, nondistended. MUSCULOSKELETAL: No cyanosis, or edema. BACK: Nontender without obvious deformity. No CVA tenderness. NEUROLOGICAL: Awake and alert. Cranial nerves II through XII intact. Motor and sensory grossly within normal limits. Five out of 5 muscle strength in all muscle groups. Normal speech. Results Procedures completed during hospitalization: none Labs on day of discharge: Labs from last 24 hours 11/17/17 11/17/17 11/16/17 07:35 02:36 20:03 POC Glucose 162 H 143 H 176 H 11/16/17 11/16/17 16:24 12:08 POC Glucose 154 H 179 H - Impressions ITS Impressions Chest X-Ray 11/14/17 09:25 CONCLUSION: Negative examination. Myocardial Perfusion Scan Nuc Med 11/15/17 00:01 CONCLUSION: 1. No significant reversibility to suggest ischemia. 2. Normal wall motion with ejection fraction of 69%. Shoulder MRI 11/16/17 00:00 CONCLUSION: Minimal cuff tendinosis and subacromial/subdeltoid bursitis. Otherwise negative. Discharge Plan - Discharge Disposition Patient Disposition: 01 Discharge Home - Discharge Condition Condition: Stable - Discharge Order Discharge Orders: Discharge Order (Routine); Ordered 11/17/17 Ordered By: Rajani Vela - Discharge Details Anticipated Discharge Date: 11/17/17 - Physicians Team Primary Care Provider: [facility] Attending Provider: Rajani Vela
[2017-11-17 10:57] VITALS: BP 122/68; PULSE 65; RESP 20; TEMP 96.9
== END 2017-11-17 13:03 | disposition home or self-care (01) ==
LOC: PH3 09:08 → PHED 09:08 → PHEDA 09:08 → PH3 12:40
PROVIDERS: ADMIT Hospitalist; ATTEND Hospitalist